=== PATIENT | male | born 1965 | race Native Hawaiian/Other Pacific Islander ===

== ENCOUNTER 2016-10-17 19:53 | Emergency (ER) | payer SELFPAY ==
[~2016-10-17] VITALS: Ht 165.1 cm; Wt 88.0 kg
[2016-10-17 19:58] VITALS: BP 130/89; PULSE 74; RESP 15; TEMP 97.7; O2SAT 95
--- NOTE | 2016-10-17 20:16 | PD ---
HPI . 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 Apparently patient had a headache 3 days ago and his who is a air twist operator decided to start checking his blood pressure. He notices that his blood pressure was trending on the lower side and that he had a skipped beat. She has been following his blood pressure for several days and decided to bring him in because of the irregular heartbeat. He does admit to some right shoulder pain that is been present for 2 months. 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 He does not have a primary care provider. Patient denies any chest pain, shortness of breath, nausea, vomiting, diaphoresis, or abdominal pain. He denies any family hx of cardiac disorders, IN or CVA. He does have risk factors of smoking in the past. PFSH Past Medical History Medical History: Denies Significant Hx Influenza Vaccination: No Past Surgical History Cholecystectomy: Yes Social History Alcohol Use: No Tobacco Use: No Substance Use: No Allergies-Medications (Allergen,Severity, Reaction): Coded Allergies: No Known Allergies (Unverified , 10/17/16) Reported Meds & Prescriptions Reported Meds & Active Scripts Active No Active Prescriptions or Reported Medications Review of Systems General / Constitutional: No: Fever Eyes: No: Visual changes HENT: No: Headaches Cardiovascular: Positive: Irregular Rhythm, No: Chest Pain or Discomfort, Palpitations, Tachycardia, Syncope, Dyspnea on exertion, Edema Respiratory: No: Shortness of Breath Gastrointestinal: No: Abdominal Pain Genitourinary: No: Dysuria Musculoskeletal: No: Pain Skin: No Rash Neurologic: No: Weakness Psychiatric: No: Depression Endocrine: No: Polydipsia Hematologic/Lymphatic: No: Easy Bruising Physical Exam Narrative GENERAL: AAO x 3, no acute distress, Well-nourished, well-developed patient. SKIN: Warm and dry. No visible rashes or bruising. HEAD: Normocephalic and atraumatic. EYES: No scleral icterus. No injection or drainage. ENT: No nasal drainage noted. Mucous membranes pink. Airway patent. NECK: Supple, trachea midline. No JVD. CARDIOVASCULAR: Regular rate and rhythm without murmurs, gallops, or rubs. RESPIRATORY: Breath sounds equal bilaterally. No accessory muscle use. No rhonchi or rales. GASTROINTESTINAL: Abdomen soft, non-tender, nondistended. EXTREMITIES: No cyanosis or edema. Full ROM bilaterally without any acute issues. BACK: Nontender without obvious deformity. No CVA tenderness. PSYCH: AAO x 3, normal affect. Data Data Last Documented VS Vital Signs Date Time Temp Pulse Resp B/P Pulse Ox O2 Delivery O2 Flow Rate FiO2 10/17/16 20:35 98 Room Air 10/17/16 19:58 97.7 74 15 130/89 Orders Electrocardiogram (10/17/16 20:23) Basic Metabolic Panel (Bmp) (10/17/16 20:23) Ckmb (Isoenzyme) Profile (10/17/16 20:23) Complete Blood Count With Diff (10/17/16 20:23) Magnesium (Mg) (10/17/16 20:23) Prothrombin Time / Inr (Pt) (10/17/16 20:23) Act Partial Throm Time (Ptt) (10/17/16 20:23) Troponin I (10/17/16 20:23) Ecg Monitoring (10/17/16 20:23) Bilateral Bp Monitoring (10/17/16 20:23) Iv Access Insert/Monitor (10/17/16 20:23) Oximetry (10/17/16 20:23) Oxygen Administration (10/17/16 20:23) Sodium Chloride 0.9% Flush (Ns Flush) (10/17/16 20:30) CKMB (10/17/16 20:20) CKMB% (10/17/16 20:20) Labs Laboratory Tests Test 10/17/16 20:20 White Blood Count 10.6 TH/MM3 Red Blood Count 5.31 MIL/MM3 Hemoglobin 16.0 GM/DL Hematocrit 47.4 % Mean Corpuscular Volume 89.3 FL Mean Corpuscular Hemoglobin 30.1 PG Mean Corpuscular Hemoglobin 33.7 % Concent Red Cell Distribution Width 13.2 % Platelet Count 240 TH/MM3 Mean Platelet Volume 9.1 FL Neutrophils (%) (Auto) 54.0 % Lymphocytes (%) (Auto) 30.5 % Monocytes (%) (Auto) 11.4 % Eosinophils (%) (Auto) 3.7 % Basophils (%) (Auto) 0.4 % Neutrophils # (Auto) 5.7 TH/MM3 Lymphocytes # (Auto) 3.2 TH/MM3 Monocytes # (Auto) 1.2 TH/MM3 Eosinophils # (Auto) 0.4 TH/MM3 Basophils # (Auto) 0.0 TH/MM3 CBC Comment DIFF FINAL Differential Comment Prothrombin Time 10.4 SEC Prothromb Time International 0.9 RATIO Ratio Activated Partial 27.8 SEC Thromboplast Time Sodium Level 139 MEQ/L Potassium Level 4.2 MEQ/L Chloride Level 104 MEQ/L Carbon Dioxide Level 28.2 MEQ/L Anion Gap 7 MEQ/L Blood Urea Nitrogen 18 MG/DL Creatinine 1.21 MG/DL Estimat Glomerular Filtration 64 ML/MIN Rate Random Glucose 89 MG/DL Calcium Level 8.4 MG/DL Magnesium Level 2.4 MG/DL Total Creatine Kinase 175 U/L Creatine Kinase MB 0.8 NG/ML Troponin I LESS THAN 0.02 NG/ML MDM Medical Decision Making Medical Screen Exam Complete: Yes Emergency Medical Condition: Yes Medical Record Reviewed: Yes (Has only been seen at [facility]) Differential Diagnosis arrhythmia (PVCs on ekg), less likely a fib, less like ACS Narrative Course 50-year-old with no significant past medical history other than tobaccoism with [id number] now in remission for 9 years here with his family for irregular heartbeat. Apparently patient had a headache 3 days ago and his who is a air twist operator decided to start checking his blood pressure. He notices that his blood pressure was trending on the lower side and that he had a skipped beat. She has been following his blood pressure for several days and decided to bring him in because of the irregular heartbeat. He does admit to some right shoulder pain that is been present for 2 months. 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 He does not have a primary care provider. Patient denies any chest pain, shortness of breath, nausea, vomiting, diaphoresis, or abdominal pain. Patient seen and examined. Case discussed with Dr. Wilson. EKG and labs ordered. Discussed with patient and his family. Labs reviewed unremarkable: EKG with multiple PVCs Discussed with Dr. Wilson cardiology: recommends outpt working including Holter and Echo I discussed with patient and his family. NO meds prior to discharge. Diagnosis Primary Impression: PVC (premature ventricular contraction) Patient Instructions: General Instructions Additional Instructions: Find and establish with a primary care doctor in the area. As we discussed, you will need to see a travel pta for further testing including a Holter Monitor and Echocardiogram. Return to ED if symptoms worsen. Med/Other Pt SpecificInfo: No Meds Exist/No RX given Scripts No Active Prescriptions or Reported Meds Disposition: 01 DISCHARGE HOME Condition: Stable Colette Gasca Oct 17, 2016 20:16
[2016-10-17] MEDS ORDERED: SODIUM CHLORIDE 0.9% FLUSH 5 ML FLUSH IVF PRN (20:30)
[2016-10-17 20:35] VITALS: O2SAT 98
[2016-10-17 21:20] LABS: AUTOMATED NEUTROPHIL # 5.7 TH/MM3 (1.8-7.7); BASOPHIL % 0.4 % (0.0-2.0); EOSINOPHIL # 0.4 TH/MM3 (0-0.4); EOSINOPHIL % 3.7 % (0.0-4.0); HEMATOCRIT 47.4 % (39.0-51.0); HEMO FLAGS DIFF FINAL; LYMPH % 30.5 % (9.0-44.0); LYMPHOCYTE # 3.2 TH/MM3 (1.0-4.8); MEAN CELL VOLUME 89.3 FL (80.0-100.0); MEAN CORPUSCULAR HEMOGLOBIN 30.1 PG (27.0-34.0); MEAN CORPUSCULAR HGB CONC 33.7 % (32.0-36.0); MONO % 11.4 % (0.0-8.0); PLATELET COUNT 240 TH/MM3 (150-450); RED BLOOD COUNT 5.31 MIL/MM3 (4.50-5.90); RED CELL DISTRIBUTION WIDTH 13.2 % (11.6-17.2); WHITE BLOOD COUNT 10.6 TH/MM3 (4.0-11.0)
[2016-10-17 21:22] LABS: APTT (PATIENT) 27.8 SEC (24.3-30.1); INTERNATIONAL NORMALIZED RATIO 0.9 RATIO; PROTHROMBIN TIME - PATIENT 10.4 SEC (9.8-11.6)
[2016-10-17 21:30] LABS: ANION GAP 7 MEQ/L (5-15); BICARBONATE 28.2 MEQ/L (21.0-32.0); BLOOD UREA NITROGEN 18 MG/DL (7-18); CHLORIDE 104 MEQ/L (98-107); GLOMERULAR FILTRATION RATE 64 ML/MIN (>89); MAGNESIUM 2.4 MG/DL (1.5-2.5); SODIUM (NA) 139 MEQ/L (136-145)
[2016-10-17 21:31] LABS: POTASSIUM 4.2 MEQ/L (3.5-5.1)
[2016-10-17 21:37] LABS: CREATINE KINASE 175 U/L (39-308)
[2016-10-17 21:49] LABS: CKMB 0.8 NG/ML (0.5-3.6)
[2016-10-17 23:04] VITALS: BP 137/82; PULSE 62; RESP 18; O2SAT 96
--- NOTE | 2016-10-18 15:07 | EKG ---
Date Performed: 10/17/2016 Time Performed: 20:16:11 PTAGE: 50 years EKG: Sinus rhythm WITH SHORT [place] INTERVAL WITH FREQUENT VENTRICULAR PREMATURE COMPLEXES ABNORMAL RHYTHM ECG NO PREVIOUS TRACING DOCTOR: Kade Wray Interpretating Date/Time 10/18/2016 15:06:32
== END 2016-10-17 23:14 | disposition home or self-care (01) ==
LOC: NEPE 19:53
DX: I49.3 Ventricular premature depolarization (principal); M25.511 Pain in right shoulder; R51 Headache; Z87.891 Personal history of nicotine dependence
CPT/HCPCS: 80048; 82550; 82552; 83735; 84484; 85025; 85610; 85730; 93005; 99284